=== PATIENT | female | born 1970 | race Caucasian/White ===

== ENCOUNTER 2018-08-13 21:16 | Emergency (ER) | payer OTHER ==
[~2018-08-13] VITALS: Ht 157.5 cm; Wt 39.0 kg
--- NOTE | 2018-08-13 21:16 | NUR ---
PT A/OX4, ABLE TO FOLLOW COMMANDS. PT C/O C/P THAT STARTED APPROXIMATELY 40 MIN AGO WHILE AT REST, NO PROVOKING FACTOR, SHARP IN QUALITY, DOES NOT RADIATE, 510, CONSTANT. PT IS HYPERTENSIVE AT THIS TIME. SPENCER GOETZ AT BEDSIDE FOR MSE.
[2018-08-13] MEDS ORDERED: NITROGLYCERIN 0.4 MG/TAB BOTTLE SL ONE ×2 (21:30→21:33)
[2018-08-13] MEDS ORDERED: IV NORMAL SALINE 500 ML BAG IV ONE (21:30)
[2018-08-13] MEDS ORDERED: ASPIRIN 325 MG TABLET PO ONE (21:30)
[2018-08-13] MEDS ORDERED: ASPIRIN 325 MG TABLET ONE (21:33)
[2018-08-13 21:48] LABS: BASOPHILS # (AUTO) 0.1 K/uL (0.0-8.0); BASOPHILS % (AUTO) 0.9 % (0.0-2.0); EOSINOPHILS # (AUTO) 0.1 K/uL (0.0-0.7); EOSINOPHILS % (AUTO) 1.4 % (0.0-7.0); HEMATOCRIT 29.7 % (31.2-41.9); HEMOGLOBIN 9.9 g/dL (10.9-14.3); LYMPHOCYTES # (AUTO) 1.8 K/uL (20.0-40.0); LYMPHOCYTES % (AUTO) 30.6 % (20.5-51.5); MEAN CORPUSCULAR HEMOGLOBIN 33.9 uug (24.7-32.8); MEAN CORPUSCULAR HGB CONC 33 g/dL (32.3-35.6); MONOCYTES # (AUTO) 0.6 K/uL (2.0-10.0); MONOCYTES % (AUTO) 10.5 % (0.0-11.0); NEUTROPHILS # (AUTO) 3.4 K/uL (1.8-8.9); NEUTROPHILS % (AUTO) 56.6 % (38.5-71.5); PLATELET COUNT (AUTO) 228 K/uL (179-408); RED BLOOD CELL COUNT(AUTO) 2.91 MIL/uL (3.63-4.92)
[2018-08-13 21:55] LABS: CREATININE 1.1 mg/dL (0.6-1.3); POTASSIUM 4.1 mmol/L (3.5-5.1)
[2018-08-13] MEDS ORDERED: LOSA100T15 PO (21:58)
[2018-08-13] MEDS ORDERED: METO50TA16 PO (21:59)
[2018-08-13] MEDS ORDERED: HYDR25TA4 PO (22:00)
[2018-08-13] MEDS ORDERED: LORA-259 PO (22:02)
[2018-08-13] MEDS ORDERED: KEPPRA PO (22:03)
[2018-08-13 22:08] LABS: BILIRUBIN,DIRECT 0.1 mg/dL (0.0-0.2); BILIRUBIN,TOTAL 0.2 mg/dL (0.2-1.0); TOTAL PROTEIN, SERUM 7.1 g/dL (6.4-8.2)
[2018-08-13] MEDS ORDERED: CLON0.1T14 PO (22:09)
[2018-08-13] MEDS ORDERED: LORAZEPAM 2 MG/1 ML VIAL ONE (22:12)
[2018-08-13] MEDS ORDERED: LORAZEPAM 2 MG/1 ML VIAL IV ONE (22:15)
--- NOTE | 2018-08-13 22:27 | NUR ---
Patient discharged to home in stable conditon. Written and verbal after care instructions given. Patient verbalizes understanding of instructions. PT SELF-AMBULATED W/O DIFFICULTY. ALL BELONGINGS W/ PT. 22G IV ACCESS IN R AC & 22G IV ACCESS IN L FOREARM REMOVED PRIOR TO D/C - INNER CANNULA INTACT.
[2018-08-13 22:29] VITALS: BP 163/102
--- NOTE | 2018-08-13 22:30 | NUR ---
PT WILL BE DRIVEN BACK TO [facility] BY STAFF MEMBER.
== END 2018-08-13 22:31 | disposition home or self-care (01) ==
LOC: ER 21:18
DX: R07.89 Other chest pain (principal); I10 Essential (primary) hypertension; Z88.8 Allergy status to other drugs, medicaments and biological substances; Z91.040 Latex allergy status
CPT/HCPCS: 36415; 71045; 80048; 80076; 83880; 84484; 85025; 85730; 93005; 96374; 99284; J2060; 70030-TC; A4663; J7040